=== PATIENT | female | born 1970 | race Caucasian/White ===

== ENCOUNTER 2016-11-09 18:45 | Emergency (ER) | payer OTHER ==
--- NOTE | 2016-11-09 20:35 | DIAGNOSTIC IMAGING REPORT ---
PROCEDURE: CT ABDOMEN/PELVIS W/O CONTRAST INDICATION: Bilateral flank pain. Hematuria. History of kidney stones. Prior cholecystectomy, diverticulosis. TECHNIQUE: Noncontrast axial images with sagittal and coronal reformations. COMPARISON: Comparison is made to CT abdomen and pelvis on 03/27/2015. FINDINGS: ABDOMEN: Kidneys and ureters are normal. No evidence of urinary tract calculus or obstruction. Prior cholecystectomy (surgical clips). Liver, spleen, pancreas, and aorta are normal. There is a 7 mm nonobstructing appendicolith without evidence of inflammation. Bowel pattern is otherwise normal. There are moderate degenerative changes of the lower lumbar spine. PELVIS: Mild sigmoid diverticulosis. Uterus and adnexal structures are normal. There is a punctate air collection in the ventral urinary bladder. No evidence of free fluid. IMPRESSION: 1. Normal kidneys and ureters. No inferior tract obstruction or calculus. 2. Status post cholecystectomy. 3. There is a 7 mm nonobstructing appendicolith without evidence of inflammation (chronic). 4. Mild sigmoid diverticulosis. 5. Small punctate air collection in the ventral urinary bladder. Consider urinary tract infection or recent instrumentation. 6. Findings discussed with Dr. Meryl Carmen. All CT scans at this facility use dose modulation, iterative reconstruction, and/or weight-based dosing when appropriate to reduce radiation dose to as low as reasonably achievable.
--- NOTE | 2016-11-09 21:03 | ED NURSING NOTES ---
Clinical Report - Nurses [facility] [place] [address] 11/09/2016 18:45 Patient: JANET MOSER TRIAGE Triage time 19:05 Nov 09 2016. Acuity: LEVEL 3. Chief Complaint: PAINFUL URINATION and FREQUENCY and (Red/orange urine). SEPSIS SCREEN: Sepsis Screen: negative. Negative (no infection suspected/documented). JUSTYNA COMA SCORE: Justyna Coma Scale: 15- eyes open spontaneously (4); best verbal response- oriented x 4 (5); best motor response- obeys commands (6). --19:10 Meenakshi Huff 19:05 11/09/16. BP: 161/113. HR: 77. RR: 20. O2 saturation: 100% on room air. Temp: 98.1 F (oral). Pain level now: 03/23. --19:10 Meenakshi Huff. Weight: 139.2 kg stated. Height/Length: 68 inches Per Patient. BMI: 46.7. --19:09 Meenakshi Huff. Medications Albuterol Sulfate Inhalation, as needed. AmLODIPine Besylate Oral. Aspirin Oral. Hydrochlorothiazide Oral. Lisinopril Oral. Methoprogesterone, , for bleeding uterus. Paxil Oral 10 mg, daily. --19:08 Meenakshi Huff. Medication/allergy information source: the patient. --19:10 Meenakshi Huff. Allergies Codeine.(hives) Sulfa Antibiotics.(Anaphylaxis) --19:08 Meenakshi Huff. History Arrived by private vehicle. Historian: patient. Accompanied by family. Primary physician (varsha). This started today. ( Patient reports painful urination that started today. She reports cramping, orange urine that is now red. 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 PAST MEDICAL HX: Immunizations: up-to-date. Last normal menstrual period- states on and off bleeding for two years. SOCIAL HX: Never smoker. No alcohol use or drug use. No infectious disease exposure. ABUSE ASSESSMENT: No report of abuse. FALL RISK ASSESSMENT: Fall risk assessment completed. No fall risk identified. NUTRITIONAL RISK ASSESSMENT: The nutritional risk assessment revealed no deficiencies. FUNCTIONAL ASSESSMENT: Functional assessment: no impairments noted. LEARNING NEEDS ASSESSMENT: The learning needs assessment revealed no barriers. SKIN INTEGRITY ASSESSMENT: Skin integrity risk assessment completed. No skin integrity risk identified. --19:10 Meenakshi Huff. PROBLEMS: Chest Wall Pain. Anxiety Reaction. Heart Disease. Asthma. Bronchitis. Enlarged heart valve. Knee Injury. Knee Effusion. LNMP - Last Normal Menstrual Period. Peripheral Nerve Entrapment. Hypertension. --19:09 Meenakshi Huff. ADDITIONAL SURGERIES: Cholecystectomy. Dilatation & Curettage. Knee Surgery. --19:09 Meenakshi Huff. Interventions ID band on patient. To treatment room. --19:10 Meenakshi Huff. PHYSICAL ASSESSMENT GENERAL / NEURO / PSYCH: Alert. Oriented X 4. Appears in no acute distress. HEENT: Mucous membranes are pink. RESPIRATORY: Respirations not labored. GI / : Abdominal tenderness in the suprapubic area. Pain with urination. SKIN: Skin is warm and dry. --19:10 Meenakshi Huff. NURSING PROGRESS NOTES Warming measures: blanket applied. Reassurance given to the patient. Two patient identifiers checked. Call light placed in reach. Side rails up x 1. Bed placed in lowest position. Brakes of bed on. Patient ready for evaluation- chart flagged. --19:11 Meenakshi Huff ( Patient was seen at [facility] earlier today and had CT but was not given results). --19:11 Meenakshi Huff Patient ID band checked for patient name and birthdate: patient confirmed. Instructions provided to collect clean catch urine and patient verbalized understanding. Clean catch urine collected with return of orange-colored red-colored cloudy urine; sample sent to lab for urinalysis and culture. Specimen labeled in the presence of the patient. --19:15 Meenakshi Huff 20:53 11/09/16. BP: 162/101. HR: 69. RR: 18. O2 saturation: 97%. Pain level now: 04/22. --20:54 Meenakshi Huff 20:58 11/09/2016 Pyridium (Phenazopyridine HCl) PO Tablets 200 mg given. Allergies verified and confirmed 5 rights. --20:58 Meenakshi Huff 20:58 11/09/2016 Macrobid PO Capsules 100 mg given. Allergies verified and confirmed 5 rights. --20:58 Meenakshi Huff. DISPOSITION / DISCHARGE 21:15 11/09/16. Condition at departure: stable. No learning barriers present. Discharge instructions provided and reviewed with the patient and spouse. Reviewed medication(s) side effects, precautions, dosing and course information. Prescription(s) given to the patient. Reviewed need for increased fluid intake. Patient and spouse verbalized understanding. Written instructions provided in [place]. ( Follow up with PCP in three days as needed. IF your symptoms do not improve with antibiotics see a Urologist.). The patient was discharged by the physician court assistant. She was discharged home and accompanied by spouse. She left the Emergency Department ambulatory and via private vehicle. Spouse driving. --02:23 Meenakshi Huff 21:15 11/09/16. BP: 158/88. HR: 80. RR: 18. O2 saturation: 99% on room air. Temp: 98.4 F (oral). Pain level now: 02/20. --02:23 Meenakshi Huff. Locked/Released at 11/10/2016 2:24 by Meenakshi Huff,
--- NOTE | 2016-11-09 21:03 | ED CLINICAL REPORT ---
Clinical Report - Physicians/Mid Levels [facility] [address] [place] [address] 11/09/2016 18:45 Patient: JANET MOSER Time Seen: 19:00. Arrived- By private vehicle. Historian- patient. HISTORY OF PRESENT ILLNESS Chief Complaint: DYSURIA. BLOOD IN URINE. This started today and still present. The symptoms are described as moderate. Modifying factors. Not worsened by anything. Not relieved by anything. The patient has had abnormal bleeding. No abdominal pain, pelvic pain, vaginal pain, low back pain or flank pain. No urgency of urination. She has had pain with urination. The patient has had urinary frequency and hematuria. Denies current . Similar symptoms previously: Recent medical care: The patient was seen recently at another facility. REVIEW OF SYSTEMS No nausea, vomiting, diarrhea, black stools or headache. No fever, chills, anorexia, eye discomfort or sore throat. No cough, difficulty breathing, chest pain, skin rash or enlarged lymph nodes. No joint pain. All systems otherwise negative, except as recorded above. PAST HISTORY Problems: Anxiety Reaction. Chronic Back Pain. Arthritis. Heart Disease. Asthma. Enlarged heart valve. Lumbar Radiculopathy. Tetanus Status. Immunizations. LNMP - Last Normal Menstrual Period. Peripheral Nerve Entrapment. Hypertension. Additional Surgeries: Cholecystectomy. Dilatation & Curettage. Knee Surgery. Medications: Albuterol Sulfate Inhalation, as needed. AmLODIPine Besylate Oral. Aspirin Oral. Hydrochlorothiazide Oral. Lisinopril Oral. Methoprogesterone, , for bleeding uterus. Paxil Oral 10 mg, daily. Allergies: Codeine.(hives) Sulfa Antibiotics.(Anaphylaxis). SOCIAL HISTORY Never smoker. No alcohol use or drug use. ADDITIONAL NOTES The nursing notes have been reviewed. PHYSICAL EXAM Vital Signs: 11/09/2016 19:05 BP: 161/113. HR: 77. RR: 20. O2 saturation: 100%. Temp: 98.1 F. Pain level now: 6/10. Have been reviewed. Appearance: Alert. Oriented X3. No acute distress. HEENT: Normal external inspection. Neck: Neck supple. CVS: Heart sounds normal. Respiratory: No respiratory distress. Breath sounds normal. Abdomen: Soft and nontender. Back: Normal external inspection. No CVA tenderness. Skin: Skin warm and dry. Normal skin color. No rash. Normal skin turgor. Extremities: Extremities nontender. No lower extremity edema. Neuro: Oriented X 3. Mood/affect normal. No motor deficit. LABS, X-RAYS, AND EKG Abdominal CT: Normal study. Normal aorta. Normal liver, spleen, pancreas, adrenals and kidneys. Uterus normal. Adnexa normal. Bladder normal. Appendix normal. No mass. No free fluid. No bony lesion. No diverticulitis. Study type: abdomen and pelvis. Abdominal CT performed with IV contrast. The study was independently viewed by me, interpreted by the radiologist and contemporaneously by me and discussed with the radiologist. Prior studies were not available for comparison. Laboratory Tests: UA-Culture if indicated: (KEATON: 11/09/2016 19:10) ( MsgRcvd 11/09/2016 19:55) Final results Test Result Flag Units (Reference) URINE COLOR BROWN URINE APPEARANCE TURBID URINE GLUCOSE NEGATIVE (NEGATIVE) URINE BILIRUBIN NEGATIVE (NEGATIVE) URINE KETONE NEGATIVE (NEGATIVE) URINE SPECIFIC GRAVITY 1.025 (1.010-1.030) URINE PH 6.0 (5.0-8.0) URINE PROTEIN 3+ (NEGATIVE) URINE UROBILINOGEN 0.2 EU/dL (0.2-1.0) URINE NITRITE NEGATIVE (NEGATIVE) URINE BLOOD 3+ (NEGATIVE) URINE LEUK ESTERASE NEGATIVE (NEGATIVE) URINE RBC >100 (TNTC) rbc/hpf (0-1) URINE WBC 3-5 wbc/hpf (0-1) URINE EPITHELIAL CELLS 3-5 EPI/hpf (0-5) URINE BACTERIA FEW (1+) (NONE SEEN) URINE COMMENT CULT NOT INDICATED SPECIMEN GROSSLY BLOODYURINE CULTURES ARE SET-UP BASED ON THE FOLLOWING CRITERIA:POSITIVE NITRITEPOSITIVE LEUKOCYTE ESTERASEGREATER THAN 10 WHITE BLOOD CELLSMODERATE (2+) OR GREATER BACTERIA . Pulse Oximetry: 11/09/2016 19:05 O2 saturation: 100%. (FIO2 - room air). Interpretation: normal. PROGRESS AND PROCEDURES Course of Care: PT was found to have a mildly positive UA, and was started on Macrobid and Pyridium. CT KUB was negative. Patient counseled in person regarding the patient's stable condition, test results, diagnosis and need for follow-up. Concerns were addressed. Old medical records reviewed. Disposition: Discharged. Condition: stable and improved. CLINICAL IMPRESSION Dysuria Gross hematuria INSTRUCTIONS Drink plenty of fluids. (Your urine does not show clear-cut signs of infection, and your organs all look good on CT. However, your symptoms point to infection, and you do have a small elevation in your urine white blood cells. As such, we will treat you with antibiotics. If your symptoms do not clear up, you will need to follow up with a urology specialist.). Warnings: GENERAL WARNINGS: Return or contact your physician immediately if your condition worsens or changes unexpectedly, if not improving as expected, or if other problems arise. Your Current Medications: CONTINUE TAKING THE FOLLOWING MEDICATIONS: Albuterol Sulfate Inhalation : prn. AmLODIPine Besylate Oral. Aspirin Oral. Hydrochlorothiazide Oral. Lisinopril Oral. Methoprogesterone* : for bleeding uterus. Paxil Oral : 10 mg daily. Prescription Medications: Pyridium 200 mg: take 1 orally every 8 hours as needed for urinary problems. Dispense fifteen (15). No refill. Substitution is permissible. Macrobid 100 mg: take 1 capsule orally every 12 hours for 7 days. No refill. Substitution is permissible. Understanding of the discharge instructions verbalized by patient. Follow-up with: Bryan Olivera MD, Urology, , [address] [address]; Celso Moe MD, Urology, , [address] [address] Follow up in one week if not better. Call for an appointment. Reason for referral: Blood in urine. (Electronically signed by Meryl Carmen MD 11/18/2016 7:39)
--- NOTE | 2016-11-09 21:03 | ED CLINICAL REPORT ---
Clinical Report - Physicians/Mid Levels [facility] [address] [place] [address] 11/09/2016 18:45 Patient: JANET MOSER Time Seen: 19:00. Arrived- By private vehicle. Historian- patient. HISTORY OF PRESENT ILLNESS Chief Complaint: DYSURIA. BLOOD IN URINE. This started today and still present. The symptoms are described as moderate. Modifying factors. Not worsened by anything. Not relieved by anything. The patient has had abnormal bleeding. No abdominal pain, pelvic pain, vaginal pain, low back pain or flank pain. No urgency of urination. She has had pain with urination. The patient has had urinary frequency and hematuria. Denies current . Similar symptoms previously: Recent medical care: The patient was seen recently at another facility. REVIEW OF SYSTEMS No nausea, vomiting, diarrhea, black stools or headache. No fever, chills, anorexia, eye discomfort or sore throat. No cough, difficulty breathing, chest pain, skin rash or enlarged lymph nodes. No joint pain. All systems otherwise negative, except as recorded above. PAST HISTORY Problems: Anxiety Reaction. Chronic Back Pain. Arthritis. Heart Disease. Asthma. Enlarged heart valve. Lumbar Radiculopathy. Tetanus Status. Immunizations. LNMP - Last Normal Menstrual Period. Peripheral Nerve Entrapment. Hypertension. Additional Surgeries: Cholecystectomy. Dilatation & Curettage. Knee Surgery. Medications: Albuterol Sulfate Inhalation, as needed. AmLODIPine Besylate Oral. Aspirin Oral. Hydrochlorothiazide Oral. Lisinopril Oral. Methoprogesterone, , for bleeding uterus. Paxil Oral 10 mg, daily. Allergies: Codeine.(hives) Sulfa Antibiotics.(Anaphylaxis). SOCIAL HISTORY Never smoker. No alcohol use or drug use. ADDITIONAL NOTES The nursing notes have been reviewed. PHYSICAL EXAM Vital Signs: 11/09/2016 19:05 BP: 161/113. HR: 77. RR: 20. O2 saturation: 100%. Temp: 98.1 F. Pain level now: 6/10. Have been reviewed. Appearance: Alert. Oriented X3. No acute distress. HEENT: Normal external inspection. Neck: Neck supple. CVS: Heart sounds normal. Respiratory: No respiratory distress. Breath sounds normal. Abdomen: Soft and nontender. Back: Normal external inspection. No CVA tenderness. Skin: Skin warm and dry. Normal skin color. No rash. Normal skin turgor. Extremities: Extremities nontender. No lower extremity edema. Neuro: Oriented X 3. Mood/affect normal. No motor deficit. LABS, X-RAYS, AND EKG Abdominal CT: Normal study. Normal aorta. Normal liver, spleen, pancreas, adrenals and kidneys. Uterus normal. Adnexa normal. Bladder normal. Appendix normal. No mass. No free fluid. No bony lesion. No diverticulitis. Study type: abdomen and pelvis. Abdominal CT performed with IV contrast. The study was independently viewed by me, interpreted by the radiologist and contemporaneously by me and discussed with the radiologist. Prior studies were not available for comparison. Laboratory Tests: UA-Culture if indicated: (KEATON: 11/09/2016 19:10) ( MsgRcvd 11/09/2016 19:55) Final results Test Result Flag Units (Reference) URINE COLOR BROWN URINE APPEARANCE TURBID URINE GLUCOSE NEGATIVE (NEGATIVE) URINE BILIRUBIN NEGATIVE (NEGATIVE) URINE KETONE NEGATIVE (NEGATIVE) URINE SPECIFIC GRAVITY 1.025 (1.010-1.030) URINE PH 6.0 (5.0-8.0) URINE PROTEIN 3+ (NEGATIVE) URINE UROBILINOGEN 0.2 EU/dL (0.2-1.0) URINE NITRITE NEGATIVE (NEGATIVE) URINE BLOOD 3+ (NEGATIVE) URINE LEUK ESTERASE NEGATIVE (NEGATIVE) URINE RBC >100 (TNTC) rbc/hpf (0-1) URINE WBC 3-5 wbc/hpf (0-1) URINE EPITHELIAL CELLS 3-5 EPI/hpf (0-5) URINE BACTERIA FEW (1+) (NONE SEEN) URINE COMMENT CULT NOT INDICATED SPECIMEN GROSSLY BLOODYURINE CULTURES ARE SET-UP BASED ON THE FOLLOWING CRITERIA:POSITIVE NITRITEPOSITIVE LEUKOCYTE ESTERASEGREATER THAN 10 WHITE BLOOD CELLSMODERATE (2+) OR GREATER BACTERIA . Pulse Oximetry: 11/09/2016 19:05 O2 saturation: 100%. (FIO2 - room air). Interpretation: normal. PROGRESS AND PROCEDURES Course of Care: PT was found to have a mildly positive UA, and was started on Macrobid and Pyridium. CT KUB was negative. Patient counseled in person regarding the patient's stable condition, test results, diagnosis and need for follow-up. Concerns were addressed. Old medical records reviewed. Disposition: Discharged. Condition: stable and improved. CLINICAL IMPRESSION Dysuria Gross hematuria INSTRUCTIONS Drink plenty of fluids. (Your urine does not show clear-cut signs of infection, and your organs all look good on CT. However, your symptoms point to infection, and you do have a small elevation in your urine white blood cells. As such, we will treat you with antibiotics. If your symptoms do not clear up, you will need to follow up with a urology specialist.). Warnings: GENERAL WARNINGS: Return or contact your physician immediately if your condition worsens or changes unexpectedly, if not improving as expected, or if other problems arise. Your Current Medications: CONTINUE TAKING THE FOLLOWING MEDICATIONS: Albuterol Sulfate Inhalation : prn. AmLODIPine Besylate Oral. Aspirin Oral. Hydrochlorothiazide Oral. Lisinopril Oral. Methoprogesterone* : for bleeding uterus. Paxil Oral : 10 mg daily. Prescription Medications: Pyridium 200 mg: take 1 orally every 8 hours as needed for urinary problems. Dispense fifteen (15). No refill. Substitution is permissible. Macrobid 100 mg: take 1 capsule orally every 12 hours for 7 days. No refill. Substitution is permissible. Understanding of the discharge instructions verbalized by patient. Follow-up with: Bryan Olivera MD, Urology, , [address] [address]; Celso Moe MD, Urology, , [address] [address] Follow up in one week if not better. Call for an appointment. Reason for referral: Blood in urine. (Electronically signed by Meryl Carmen MD 11/18/2016 7:39)
--- NOTE | 2016-11-09 21:03 | ED NURSING NOTES ---
Clinical Report - Nurses [facility] [address] [place] [address] 11/09/2016 18:45 Patient: JANET MOSER TRIAGE Triage time 19:05 Nov 09 2016. Acuity: LEVEL 3. Chief Complaint: PAINFUL URINATION and FREQUENCY and (Red/orange urine). SEPSIS SCREEN: Sepsis Screen: negative. Negative (no infection suspected/documented). JUSTYNA COMA SCORE: Justyna Coma Scale: 15- eyes open spontaneously (4); best verbal response- oriented x 4 (5); best motor response- obeys commands (6). --19:10 Meenakshi Huff 19:05 11/09/16. BP: 161/113. HR: 77. RR: 20. O2 saturation: 100% on room air. Temp: 98.1 F (oral). Pain level now: 03/23. --19:10 Meenakshi Huff. Weight: 139.2 kg stated. Height/Length: 68 inches Per Patient. BMI: 46.7. --19:09 Meenakshi Huff. Medications Albuterol Sulfate Inhalation, as needed. AmLODIPine Besylate Oral. Aspirin Oral. Hydrochlorothiazide Oral. Lisinopril Oral. Methoprogesterone, , for bleeding uterus. Paxil Oral 10 mg, daily. --19:08 Meenakshi Huff. Medication/allergy information source: the patient. --19:10 Meenakshi Huff. Allergies Codeine.(hives) Sulfa Antibiotics.(Anaphylaxis) --19:08 Meenakshi Huff. History Arrived by private vehicle. Historian: patient. Accompanied by family. Primary physician (varsha). This started today. ( Patient reports painful urination that started today. She reports cramping, orange urine that is now red. 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 PAST MEDICAL HX: Immunizations: up-to-date. Last normal menstrual period- states on and off bleeding for two years. SOCIAL HX: Never smoker. No alcohol use or drug use. No infectious disease exposure. ABUSE ASSESSMENT: No report of abuse. FALL RISK ASSESSMENT: Fall risk assessment completed. No fall risk identified. NUTRITIONAL RISK ASSESSMENT: The nutritional risk assessment revealed no deficiencies. FUNCTIONAL ASSESSMENT: Functional assessment: no impairments noted. LEARNING NEEDS ASSESSMENT: The learning needs assessment revealed no barriers. SKIN INTEGRITY ASSESSMENT: Skin integrity risk assessment completed. No skin integrity risk identified. --19:10 Meenakshi Huff. PROBLEMS: Chest Wall Pain. Anxiety Reaction. Heart Disease. Asthma. Bronchitis. Enlarged heart valve. Knee Injury. Knee Effusion. LNMP - Last Normal Menstrual Period. Peripheral Nerve Entrapment. Hypertension. --19:09 Meenakshi Huff. ADDITIONAL SURGERIES: Cholecystectomy. Dilatation & Curettage. Knee Surgery. --19:09 Meenakshi Huff. Interventions ID band on patient. To treatment room. --19:10 Meenakshi Huff. PHYSICAL ASSESSMENT GENERAL / NEURO / PSYCH: Alert. Oriented X 4. Appears in no acute distress. HEENT: Mucous membranes are pink. RESPIRATORY: Respirations not labored. GI / : Abdominal tenderness in the suprapubic area. Pain with urination. SKIN: Skin is warm and dry. --19:10 Meenakshi Huff. NURSING PROGRESS NOTES Warming measures: blanket applied. Reassurance given to the patient. Two patient identifiers checked. Call light placed in reach. Side rails up x 1. Bed placed in lowest position. Brakes of bed on. Patient ready for evaluation- chart flagged. --19:11 Meenakshi Huff ( Patient was seen at [facility] earlier today and had CT but was not given results). --19:11 Meenakshi Huff Patient ID band checked for patient name and birthdate: patient confirmed. Instructions provided to collect clean catch urine and patient verbalized understanding. Clean catch urine collected with return of orange-colored red-colored cloudy urine; sample sent to lab for urinalysis and culture. Specimen labeled in the presence of the patient. --19:15 Meenakshi Huff 20:53 11/09/16. BP: 162/101. HR: 69. RR: 18. O2 saturation: 97%. Pain level now: 04/22. --20:54 Meenakshi Huff 20:58 11/09/2016 Pyridium (Phenazopyridine HCl) PO Tablets 200 mg given. Allergies verified and confirmed 5 rights. --20:58 Meenakshi Huff 20:58 11/09/2016 Macrobid PO Capsules 100 mg given. Allergies verified and confirmed 5 rights. --20:58 Meenakshi Huff. DISPOSITION / DISCHARGE 21:15 11/09/16. Condition at departure: stable. No learning barriers present. Discharge instructions provided and reviewed with the patient and spouse. Reviewed medication(s) side effects, precautions, dosing and course information. Prescription(s) given to the patient. Reviewed need for increased fluid intake. Patient and spouse verbalized understanding. Written instructions provided in [place]. ( Follow up with PCP in three days as needed. IF your symptoms do not improve with antibiotics see a Urologist.). The patient was discharged by the physician retail administrative assistant. She was discharged home and accompanied by spouse. She left the Emergency Department ambulatory and via private vehicle. Spouse driving. --02:23 Meenakshi Huff 21:15 11/09/16. BP: 158/88. HR: 80. RR: 18. O2 saturation: 99% on room air. Temp: 98.4 F (oral). Pain level now: 02/20. --02:23 Meenakshi Huff. Locked/Released at 11/10/2016 2:24 by Meenakshi Huff,
--- NOTE | 2016-11-09 21:04 | ED ORDER SUMMARY ---
..... Patient: JANET MOSER OrderSheet [facility] VisitID: [id number] [address] [place] [address] 46y, F Registration Date/Time: 11/09/2016 ORDER SHEET Weight: 139.2 kg (stated) Allergies: Codeine, Sulfa Antibiotics GENERAL ORDERS: UA-Culture if indicated Urgent (19:28 11/09/2016 Rafy CHAUDHARY) (19:33 AMcQuoid ER Tech1) (Ack 19:34 LTapper) CT Abd/Pel wo Cont Urgent (20:02 11/09/2016 Rafy CHAUDHARY) (Ack 20:04 LTapper) (20:20 MCampbell) MEDICATION ORDERS: Pyridium PO 200 mg (NOW) (20:52 11/09/2016 Rafy CHAUDHARY) (Ack 20:53 HSoule) (20:58 HSoule) Macrobid PO 100 mg (NOW) (20:53 11/09/2016 Rafy CHAUDHARY) (Ack 20:53 HSoule) (20:58 HSoule) IV FLUIDS: ORDER SHEET NOTES: [Electronically signed by Meenakshi Huff (02:24 11/10/2016)] [Electronically signed by Meryl Carmen MD (07:39 11/18/2016)] [Electronically locked/signed by Meenakshi Huff (02:24 11/10/2016)]
--- NOTE | 2016-11-09 21:04 | ED ORDER SUMMARY ---
..... Patient: JANET MOSER OrderSheet [facility] VisitID: [id number] [address] [place] [address] 46y, F Registration Date/Time: 11/09/2016 ORDER SHEET Weight: 139.2 kg (stated) Allergies: Codeine, Sulfa Antibiotics GENERAL ORDERS: UA-Culture if indicated Urgent (19:28 11/09/2016 Rafy CHAUDHARY) (19:33 AMcQuoid ER Tech1) (Ack 19:34 LTapper) CT Abd/Pel wo Cont Urgent (20:02 11/09/2016 Rafy CHAUDHARY) (Ack 20:04 LTapper) (20:20 MCampbell) MEDICATION ORDERS: Pyridium PO 200 mg (NOW) (20:52 11/09/2016 Rafy CHAUDHARY) (Ack 20:53 HSoule) (20:58 HSoule) Macrobid PO 100 mg (NOW) (20:53 11/09/2016 Rafy CHAUDHARY) (Ack 20:53 HSoule) (20:58 HSoule) IV FLUIDS: ORDER SHEET NOTES: [Electronically signed by Meenakshi Huff (02:24 11/10/2016)] [Electronically signed by Meryl Carmen MD (07:39 11/18/2016)] [Electronically locked/signed by Meenakshi Huff (02:24 11/10/2016)]
--- NOTE | 2016-11-18 07:39 | ED MED RECONCILIATION SUMMARY ---
Patient: JANET MOSER Medication Reconciliation Report [facility] VisitID: [id number] [address] [place] [address] 46y, F Registration Date/Time: 11/09/2016 Weight: 139.2 kg Height/Length: 68 in. BMI: 46.7 ALLERGIES: Codeine, Sulfa Antibiotics The patient's Home Medications are listed below: CONTINUE TAKING THE FOLLOWING MEDICATIONS: Albuterol Sulfate Inhalation AmLODIPine Besylate Oral Aspirin Oral Hydrochlorothiazide Oral Lisinopril Oral Methoprogesterone, for bleeding uterus Paxil Oral 10 mg, daily The source(s) of the original Home Medication information: patient The following Medications were given to the patient in the Emergency Department: Pyridium [PO] PO 200 mg, administered: 11/09/2016 8:58:00 PM Macrobid [PO] PO 100 mg, administered: 11/09/2016 8:58:00 PM The following Medications were prescribed to the patient: Pyridium 200 mg: take 1 orally every 8 hours as needed for urinary problems. Dispense fifteen (15). No refill. Substitution is permissible. -- Meryl Carmen MD Macrobid 100 mg: take 1 capsule orally every 12 hours for 7 days. No refill. Substitution is permissible. -- Meryl Carmen MD
--- NOTE | 2016-11-18 07:39 | ED MAR SUMMARY ---
..... Medication Administration Record [facility] [address] [place] [address] Patient: JANET MOSER Visit ID: [id number] 46y, F Weight: 139.2 kg Height/Length: 68 in BMI: 46.7 ALLERGIES: Codeine, Sulfa Antibiotics Given 20:11/09/2016 Meenakshi Huff, Medication Administered: PYRIDIUM [PO] (PHENAZOPYRIDINE HCL), Dose: 200 mg Tablets PO. Medication Ordered: Pyridium PO 200 mg (NOW). Given 20:11/09/2016 Meenakshi Huff, Medication Administered: MACROBID [PO], Dose: 100 mg Capsules PO. Medication Ordered: Macrobid PO 100 mg (NOW).
--- NOTE | 2016-11-18 07:39 | ED MAR SUMMARY ---
..... Medication Administration Record [facility] [address] [address] Patient: JANET MOSER Visit ID: [id number] 46y, F Weight: 139.2 kg Height/Length: 68 in BMI: 46.7 ALLERGIES: Codeine, Sulfa Antibiotics Given 20:11/09/2016 Meenakshi Huff, Medication Administered: PYRIDIUM [PO] (PHENAZOPYRIDINE HCL), Dose: 200 mg Tablets PO. Medication Ordered: Pyridium PO 200 mg (NOW). Given 20:11/09/2016 Meenakshi Huff, Medication Administered: MACROBID [PO], Dose: 100 mg Capsules PO. Medication Ordered: Macrobid PO 100 mg (NOW).
--- NOTE | 2016-11-18 07:39 | ED DISCHARGE INSTRUCTIONS ---
Patient: JANET MOSER General Instructions [facility] VisitID: [id number] [place] [address] 46y, F Registration Date/Time: 11/09/2016 Dysuria Gross hematuria INSTRUCTIONS Drink plenty of fluids. (Your urine does not show clear-cut signs of infection, and your organs all look good on CT. However, your symptoms point to infection, and you do have a small elevation in your urine white blood cells. As such, we will treat you with antibiotics. If your symptoms do not clear up, you will need to follow up with a urology specialist.). Warnings: GENERAL WARNINGS: Return or contact your physician immediately if your condition worsens or changes unexpectedly, if not improving as expected, or if other problems arise. Your Current Medications: CONTINUE TAKING THE FOLLOWING MEDICATIONS: Albuterol Sulfate Inhalation : prn. AmLODIPine Besylate Oral. Aspirin Oral. Hydrochlorothiazide Oral. Lisinopril Oral. Methoprogesterone* : for bleeding uterus. Paxil Oral : 10 mg daily. Prescription Medications: Pyridium 200 mg: take 1 orally every 8 hours as needed for urinary problems. Dispense fifteen (15). No refill. Substitution is permissible. Macrobid 100 mg: take 1 capsule orally every 12 hours for 7 days. No refill. Substitution is permissible. Understanding of the discharge instructions verbalized by patient. Follow-up with: Bryan Olivera MD, Urology, , [address] [address]; Celso Moe MD, Urology, , [address] [address] Follow up in one week if not better. Call for an appointment. Reason for referral: Blood in urine. ADDITIONAL INFORMATION Dysuria [Adult, Uncertain Cause] The urethra is the channel that allows urine to pass out of the body. In a woman, the urethra is the opening above the vagina. In men, the urethra is the opening on the tip of the penis. Dysuria is the feeling of pain or burning in the urethra when passing urine. Dysuria can be caused by anything that irritates or inflames the urethra. This can be caused by an infection or chemical irritation. The cause for your dysuria is not certain. The most common cause of dysuria in adults is a bladder infection. This is diagnosed with a urine test. It requires treatment with an antibiotic. Soaps, lotions, colognes, feminine hygiene products, contraceptive jellies, creams and foams can cause chemical irritation and dysuria. It will go away in 1-3 days after last exposure. Sexually Transmitted Disease (STD) from Chlamydia or Gonorrhea can cause dysuria. If your doctor suspects this, a culture specimen may be taken. It will take about three days to get the results. Antibiotic treatment may be started before the culture test returns. In post-menopausal women, dysuria can be a result of dryness in the lining of the urethra. This can be treated with hormones. Dysuria becomes "chronic" when it lasts for weeks or months. A referral to a specialist (urologist) may be needed to diagnose and treat chronic dysuria. Home Care: Avoid any chemical agents that you suspect may be causing your symptoms. If you were given a prescription medicine, take as directed. If a culture was taken, avoid sexual activity until you have been told that it is negative (no infection). Then, follow your doctor's advice to treat your condition. If a culture was done and it is positive: Both you and your sexual partner need to be treated, even if your partner has no symptoms. Contact your doctor or go to an urgent care clinic or the Public Health Department to be examined and treated. Avoid sexual activity until both you and your partner have completed all antibiotic medicine and told that you are no longer contagious. Learn about safe sex practices and use these in the future. The safest sex is with a partner who has tested negative and only has sex with you. Condoms offer protection from spreading some sexually transmitted diseases including Gonorrhea, Chlamydia and HIV, but are not a guarantee. Follow Up with your doctor as advised by our staff. If a culture was taken call in three days for the result, or as directed. If diagnosed with an STD, follow up with your doctor or the Public Health Department for complete STD screening, including HIV testing. For more information, contact the National STD Hotline: . Get Prompt Medical Attention if any of the following occur: No improvement after three days of treatment Fever of 100.4F (38C) or higher, or as directed by your healthcare provider Increasing back or abdominal pain Inability to urinate due to pain A new discharge from the urethra, vagina or penis Painful sores on the penis Rash or joint pain Enlarged painful lymph nodes (lumps) in the groin Testicle pain or swelling of the scrotum Blood In The Urine Blood in the urine ("hematuria") has many possible causes. If it occurs after an injury (such as a car accident or fall), it is most often a sign of bruising to the kidney or bladder. Common medical causes of blood in the urine include urinary tract infection, kidney stone, inflammation, tumors, or certain other diseases of the kidney or bladder. Menstruation can cause blood to appear in the urine sample, although it is not coming from the urinary tract. If only a trace amount of blood is present, it will show up on the urine test, even though the urine may be yellow and not pink or red. This may occur with any of the above conditions, as well as heavy exercise or high fever. In this case, your doctor may want to repeat the urine test on another day. This will show if the blood is still present. If so, then other tests can be done to find out the cause. Home Care: If your urine does not appear bloody (pink, brown or red) then you do not need to restrict your activity in any way. If you can see blood in your urine, rest and avoid heavy exertion until your next exam. Do not use aspirin or anti-inflammatory medicine like ibuprofen (Motrin, Advil) or naproxen (Naprosyn, Aleve). These thin the blood and may increase bleeding. Follow Up with your doctor or as advised by our staff. If you were injured and had blood in your urine, you should have a repeat urine test in 1-2 days. Contact your doctor or return to this facility for this test. [NOTE: A radiologist will review any X-rays that were taken. We will notify you of any new findings that may affect your care.] Get Prompt Medical Attention if any of the following occur: Bright red blood or blood clots in the urine (if a new symptom) Weakness, dizziness or fainting New groin, abdominal or back pain Fever of 100.4F (38C) or higher, or as directed by your healthcare provider Repeated vomiting Bleeding from nose, gums or easy bruising You have been given the following additional information: Dysuria, Uncertain Cause (Adult) Hematuria (Electronically signed by Meryl Carmen MD 11/18/2016 7:39)
--- NOTE | 2016-11-18 07:39 | ED MED RECONCILIATION SUMMARY ---
Patient: JANET MOSER Medication Reconciliation Report [facility] VisitID: [id number] [address] [place] [address] 46y, F Registration Date/Time: 11/09/2016 Weight: 139.2 kg Height/Length: 68 in. BMI: 46.7 ALLERGIES: Codeine, Sulfa Antibiotics The patient's Home Medications are listed below: CONTINUE TAKING THE FOLLOWING MEDICATIONS: Albuterol Sulfate Inhalation AmLODIPine Besylate Oral Aspirin Oral Hydrochlorothiazide Oral Lisinopril Oral Methoprogesterone, for bleeding uterus Paxil Oral 10 mg, daily The source(s) of the original Home Medication information: patient The following Medications were given to the patient in the Emergency Department: Pyridium [PO] PO 200 mg, administered: 11/09/2016 8:58:00 PM Macrobid [PO] PO 100 mg, administered: 11/09/2016 8:58:00 PM The following Medications were prescribed to the patient: Pyridium 200 mg: take 1 orally every 8 hours as needed for urinary problems. Dispense fifteen (15). No refill. Substitution is permissible. -- Meryl Carmen MD Macrobid 100 mg: take 1 capsule orally every 12 hours for 7 days. No refill. Substitution is permissible. -- Meryl Carmen MD
== END 2016-11-09 21:15 | disposition home or self-care (01) ==
LOC: ED SRH 18:45
DX: R31.0 Gross hematuria (principal); R30.0 Dysuria; I10 Essential (primary) hypertension; I51.9 Heart disease, unspecified; Z79.82 Long term (current) use of aspirin; Z79.899 Other long term (current) drug therapy; Z88.5 Allergy status to narcotic agent; Z88.2 Allergy status to sulfonamides
CPT/HCPCS: 90004

== ENCOUNTER 2016-12-31 07:33 | Emergency (ER) | payer OTHER ==
--- NOTE | 2016-12-31 10:44 | DIAGNOSTIC IMAGING REPORT ---
PROCEDURE: US VENOUS - RIGHT EXT INDICATION: PAIN TECHNIQUE: Duplex sonography of the deep venous system in the right lower extremity was performed. Compression and augmentation techniques were used. COMPARISON: None. FINDINGS: Each interrogated segment of deep vein from the common femoral vein into the calf veins demonstrates normal compressibility, augmentation and/or color Doppler flow without filling defect. No evidence of significant soft-tissue edema, soft-tissue mass or cyst. IMPRESSION: 1. No deep venous thrombosis in the right lower extremity.
--- NOTE | 2016-12-31 10:46 | DIAGNOSTIC IMAGING REPORT ---
PROCEDURE: US ART LOWER EXT DOPPLER-RIGHT INDICATION: PAIN IN LIMB TECHNIQUE: Color Doppler duplex imaging of the right lower extremity arterial system was performed. COMPARISON: None. FINDINGS: VESSELS/ WAVEFORMS: Triphasic arterial flow throughout the right lower extremity arteries. No significant atherosclerotic plaque/calcification or focal arterial stenosis. PEAK SYSTOLIC VELOCITIES: External iliac: 121 cm/second. Common femoral artery: 132 cm/second. Profunda femoral artery: 70 cm/second. Proximal superficial femoral artery: 84 cm/second. Mid superficial femoral artery: 85 cm/second. Distal superficial femoral artery: 64 cm/second. Popliteal artery: 58 cm/second. Proximal posterior tibial artery: 55 cm/second. Proximal anterior tibial artery: 57 cm/second. Peroneal artery: Not seen cm/second. Distal posterior tibial artery: 82 cm/second. Dorsalis pedis artery: 51 cm/second. IMPRESSION: 1. Normal arterial flow throughout the right lower extremity.
--- NOTE | 2016-12-31 10:59 | ED CLINICAL REPORT ---
Clinical Report - Physicians/Mid Levels [facility] [address] [place] [address] 12/31/2016 7:32 Patient: JANET MOSER *This is a preliminary document and is subject to change Time Seen: 07:45; initial patient contact. Arrived- By private vehicle. Historian- patient. HISTORY OF PRESENT ILLNESS Chief Complaint: Injury to right leg. The injury happened last night. Injury secondary to other mechansim (No injury, unk cause of pain). Occurred at home. Patient is experiencing severe pain. Patient denies injury to the head or neck. REVIEW OF SYSTEMS The patient complains of pain on weight bearing. She has had tingling, and weakness. No swelling, numbness, chest pain, difficulty breathing or pedal edema. She has had calf pain. All systems otherwise negative, except as recorded above. PAST HISTORY ( Hematuria. Dysuria. Chest Wall Pain. Anxiety Reaction. Chronic Back Pain. Arthritis. Heart Disease. Asthma. Bronchitis. Gastritis. Enlarged heart valve. Lumbar Radiculopathy. Knee Injury. Knee Effusion. Fall. Tetanus Status. Immunizations. LNMP - Last Normal Menstrual Period. Sprain. Peripheral Nerve Entrapment. Hypertension. SURGERIES: Cholecystectomy. Dilatation & Curettage. Knee Surgery). SOCIAL HISTORY Never smoker. No alcohol use or drug use. ADDITIONAL NOTES The nursing notes have been reviewed with agreement regarding the chief complaint, PMH and patient medications and allergies. PHYSICAL EXAM Appearance: Alert. Oriented X3. Appears to be in pain. Head: Head atraumatic. Eyes: Eyes normal inspection. ENT: Pharynx normal. CVS: Normal heart rate and rhythm. Heart sounds normal. Respiratory: No respiratory distress. Breath sounds normal. Skin: Skin intact. Normal skin color. Extremities: Severe soft-tissue tenderness present in the right lateral hip, right lateral, medial and anterior upper leg and right lateral, medial and anterior lower leg. Extremities otherwise negative. Gait: Gait not tested due to pain. Neuro, Vascular and Tendons: Vascular status intact. Decreased light touch sensation over the right thigh and right lower leg. Motor intact. No weakness. Neuro: Oriented X 3. No motor deficit. LABS, X-RAYS, AND EKG Laboratory Tests: UA-Culture if indicated: (KEATON: 12/31/2016 08:45) ( MsgRcvd 12/31/2016 08:58) Final results Test Result Flag Units (Reference) URINE COLOR YELLOW URINE APPEARANCE CLOUDY URINE GLUCOSE NEGATIVE (NEGATIVE) URINE BILIRUBIN NEGATIVE (NEGATIVE) URINE KETONE NEGATIVE (NEGATIVE) URINE SPECIFIC GRAVITY 1.025 (1.010-1.030) URINE PH 6.0 (5.0-8.0) URINE PROTEIN 1+ (NEGATIVE) URINE UROBILINOGEN 1.0 EU/dL (0.2-1.0) URINE NITRITE NEGATIVE (NEGATIVE) URINE BLOOD 1+ (NEGATIVE) URINE LEUK ESTERASE NEGATIVE (NEGATIVE) URINE RBC 1-3 rbc/hpf (0-1) URINE WBC 1-3 wbc/hpf (0-1) URINE EPITHELIAL CELLS 10-15 EPI/hpf (0-5) URINE BACTERIA TRACE (<1+) (NONE SEEN) URINE COMMENT CULT NOT INDICATED 1mL SPECIMENURINE CULTURES ARE SET-UP BASED ON THE FOLLOWING CRITERIA:POSITIVE NITRITEPOSITIVE LEUKOCYTE ESTERASEGREATER THAN 10 WHITE BLOOD CELLSMODERATE (2+) OR GREATER BACTERIA CBC w Diff: (KEATON: 12/31/2016 08:30) ( [facility] Final results Test Result Flag Units (Reference) SED RATE WESTERGREN 17 mm/hr (0-20) WHITE BLOOD COUNT 6.6 K/uL (4.5-11.5) RED BLOOD COUNT 4.81 M/uL (4.00-5.20) HEMOGLOBIN 13.2 gm/dL (12.0-16.0) HEMATOCRIT 39.9 % (36.0-46.0) MEAN CELL VOLUME 83 fL (80-100) MEAN CORPUSCULAR HGB 27 pg (26-34) MEAN CORPUSCULAR HGB CONC 33 g/dL (31-37) RED CELL DISTRIBUTION WIDTH 15.8 H % (11.6-14.8) PLATELET COUNT 291 K/uL (150-400) NEUTROPHIL % 74.2 % (50-75) LYMPH % 17.7 L % (25-40) MONO % 5.9 % (3-14) EOSINOPHIL % 1.8 % (0-4) BASOPHIL % 0.4 % (0-2) [id number]: (KEATON: 12/31/2016 08:30) ( MsgRcvd 12/31/2016 08:59) Final results Test Result Flag Units (Reference) D-DIMER QUANTITATIVE 0.53 H ug/mLFEU (0.27-0.52) The primary value of this quantitative assay relates toits negative predictive value (i.e. exclusion) of pulmonaryembolism/deep vein thrombosis/DIC.Elevated levels of d-dimer may also occur with:, age, cancer, inflammation, liver disease,post-op, infection, hematoma, coronary disease, peripheralarteriopathy, bleeding disorders and thrombolytic treatment.Results should be correlated with other clinical andradiological data.Testing Methodology: Latex Immunoassay CMP: (KEATON: 12/31/2016 08:30) ( MsgRcvd 12/31/2016 09:10) Final results Test Result Flag Units (Reference) GLUCOSE 95 mg/dL (70-110) BUN 16 mg/dL (7-18) CREATININE 0.8 mg/dL (0.6-1.3) Estimated GFR >60 mL/min Estimated GFR- >60 mL/min Note: Persistent reduction over 3 months in eGFR<60 mL/min/1.73 m2 defines CKD. Patients with eGFR values>=60 mL/min/1.73 m2 may also have CKD if evidence ofpersistent proteinuria. Additional information may be foundat www.kidney.org. SODIUM 141 mmol/L (136-145) POTASSIUM 3.7 mmol/L (3.5-5.1) CHLORIDE 105 mmol/L (98-107) CARBON DIOXIDE 27 mmol/L (21-32) CALCIUM 8.9 mg/dL (8.5-10.1) TOTAL PROTEIN 7.0 g/dL (6.4-8.2) ALBUMIN 3.4 g/dL (3.3-5.0) BILIRUBIN, TOTAL 0.3 mg/dL (0.0-1.0) ALKALINE PHOSPHATASE 83 U/L (46-116) AST (SGOT) 20 U/L (15-37) ALT (SGPT) 28 U/L (12-78) C-REACTIVE PROTEIN 0.7 mg/dL (0.0-0.9) . PROGRESS AND PROCEDURES Course of Care: 09:07 12/31/16. Case signed out to Dr. Hare. Labs are pending. CLINICAL IMPRESSION Acute pain in the right lower extremity .12 lead EKG performed. INSTRUCTIONS Warnings: GENERAL WARNINGS: Return or contact your physician immediately if your condition worsens or changes unexpectedly, if not improving as expected, or if other problems arise. Specifically return if pain, vomiting, bleeding, breathing difficulty or fever. Your Current Medications: CONTINUE TAKING THE FOLLOWING MEDICATIONS: Albuterol Sulfate Inhalation : prn. AmLODIPine Besylate Oral. Aspirin Oral. Hydrochlorothiazide Oral. Lisinopril Oral. Methoprogesterone* : for bleeding uterus. Paxil Oral : 10 mg daily. Follow-up: Return to the emergency department as needed. Follow up with your doctor in three days. Reason for referral: recheck today's concerns. Summary of care provided to patient via paper. Screening today revealed the patient's blood pressure to be in the normal range. The patient should follow up with a primary care provider for blood pressure management. Understanding of the discharge instructions verbalized by patient. Ranjith Hare Dr.
--- NOTE | 2016-12-31 10:59 | ED ORDER SUMMARY ---
..... Patient: JANET MOSER OrderSheet [facility] VisitID: [id number] [place] [address] 46y, F Registration Date/Time: 12/31/2016 ORDER SHEET Weight: 144.2 kg (stated) Allergies: Codeine, Sulfa Antibiotics GENERAL ORDERS: CBC w Diff Urgent (08:02 12/31/2016 Mack Bustillo) (Ack 8:04 LNations ER Tech1) (8:48 JBoardley R.N.) CMP Urgent (08:02 12/31/2016 Mack Bustillo) (Ack 8:04 LNations ER Tech1) (8:48 JBoardley R.N.) UA-Culture if indicated Urgent (08:02 12/31/2016 Mack Bustillo) (Ack 8:04 LNations ER Tech1) (8:48 JBoardley R.N.) D-Dimer Urgent (08:02 12/31/2016 Mack Bustillo) (Ack 8:04 LNations ER Tech1) (8:48 JBoardley R.N.) CRP Urgent (08:02 12/31/2016 Mack Bustillo) (Ack 8:04 LNations ER Tech1) (8:48 JBoardley R.N.) Sed Rate Urgent (08:02 12/31/2016 Mack Bustillo) (Ack 8:04 LNations ER Tech1) (8:48 JBoardley R.N.) US Venous Right Urgent (09:55 12/31/2016 Mikhail Bustillo) (Ack 9:56 LNations ER Tech1) (10:42 LWhalen R.N.) US Art Low Ext Doppler Right Urgent (09:55 12/31/2016 Mikhail Bustillo) (Ack 9:56 LNations ER Tech1) (10:42 LWhalen R.N.) MEDICATION ORDERS: Phenergan IV 25 mg (HIGH ALERT MEDICATION, NOW) (10:27 12/31/2016 Mikhail Bustillo) (10:42 LWhalen R.N.) IV FLUIDS: Toradol IV 30 mg (NOW) (08:01 12/31/2016 Mack Bustillo) (Ack 8:49 Candace R.N.) (10:11 LWhalreyna R.N.) IV Saline Lock (08:02 12/31/2016 Mack Bustillo) (8:49 Candace R.N.) Dilaudid IV 2 mg (HIGH ALERT MEDICATION, NOW) (10:27 12/31/2016 Mikhail Bustillo) (10:42 LWhalen R.N.) ORDER SHEET NOTES: This document has not been locked and should not be saved in the medical record.
--- NOTE | 2016-12-31 10:59 | ED NURSING NOTES ---
Clinical Report - Nurses [facility] [address] [place] [address] 12/31/2016 7:32 Patient: JANET MOSER TRIAGE Triage time 07:43 Dec 31 2016. Acuity: LEVEL 3. Chief Complaint: (Right sided pain started in her ankle and shot up to legs and now whole right side is numbness and tingling going into arms and hands.). --07:48 Kaylee Houston R.N. 07:43 12/31/16. BP: 153/99. HR: 65. RR: 20. O2 saturation: 100%. Temp: 98.4 F. Pain level now 07/23. --07:48 Kaylee Houston R.N. RUBINA COMA SCORE: [place] Coma Scale: 15- eyes open spontaneously (4); best verbal response- oriented x 4 (5); best motor response- obeys commands (6). --10:05 Kaylee Houston R.N. Weight: 144.2 kg stated. Height/Length: 67 inches Per Patient. BMI: 49.8. --07:47 Kaylee Houston R.N. Medications Albuterol Sulfate Inhalation, as needed. AmLODIPine Besylate Oral. Aspirin Oral. Hydrochlorothiazide Oral. Lisinopril Oral. Methoprogesterone, , for bleeding uterus. Paxil Oral 10 mg, daily. --07:45 Kaylee Houston R.N. Allergies Codeine.(hives) Sulfa Antibiotics.(Anaphylaxis) --07:45 Kaylee Houston R.N. History Arrived by private vehicle. Historian: patient. Accompanied by family. Onset was abrupt. ( Woke up out of a sleep in severe pain.). She has had new onset of pain-related weakness. Reports severe muscle aches. No fever, cough, difficulty breathing or skin rash. PAST MEDICAL HX: Immunizations: up-to-date. Last normal menstrual period- 2 years ago. SOCIAL HX: Never smoker. No alcohol use or drug use. SELF HARM ASSESSMENT: A self harm assessment was performed. The patient answered "no" to the question "Have you recently felt down, depressed, or hopeless?" and "Do you have thoughts of harming or killing yourself?". FALL RISK ASSESSMENT: Fall risk assessment completed. No fall risk identified. NUTRITIONAL RISK ASSESSMENT: The nutritional risk assessment revealed no deficiencies. FUNCTIONAL ASSESSMENT: Functional assessment: no impairments noted. LEARNING NEEDS ASSESSMENT: The learning needs assessment revealed no barriers. ABUSE ASSESSMENT: Abuse assessment: (yes) The patient was asked "Do you feel safe in your home?". SKIN INTEGRITY ASSESSMENT: Skin integrity risk assessment completed. No skin integrity risk identified. --07:48 Kaylee Houston R.N. PROBLEMS: Hematuria. Dysuria. Chest Wall Pain. Anxiety Reaction. Chronic Back Pain. Arthritis. Heart Disease. Asthma. Bronchitis. Gastritis. Enlarged heart valve. Lumbar Radiculopathy. Knee Injury. Knee Effusion. Fall. Tetanus Status. Immunizations. LNMP - Last Normal Menstrual Period. Sprain. Peripheral Nerve Entrapment. Hypertension. --07:46 Kaylee Houston R.N. ADDITIONAL SURGERIES: Cholecystectomy. Dilatation & Curettage. Knee Surgery. --07:46 Kaylee Houston R.N. Interventions ID and allergy band on patient. --07:48 Kaylee Houston R.N. PHYSICAL ASSESSMENT To room via wheelchair. GENERAL / NEURO / PSYCH: Alert. Oriented X 4. Appears anxious and in distress. She has had numbness. HEENT: Pupils equal, round and reactive to light. No facial asymmetry noted. Mucous membranes are pink. RESPIRATORY: Respirations not labored. Chest nontender. Breath sounds within normal limits. CVS: Normal sinus rhythm noted. Capillary refill less than 2 seconds. Pulses within normal limits. GI / : Abdomen soft and nontender and normal bowel sounds. EXTREMITIES: Skin intact on the extremities. Constant right-sided calf tenderness. Capillary refill is less than 2 seconds in the extremities. Extremity pulses are within normal limits. Extremities exhibit normal ROM. Pain with weight bearing. The patient was unable to bear weight. (per pt). Gait not tested due to pain. No extremity rash. No upper extremity edema. No lower extremity edema. SKIN: Skin intact. Skin is warm and dry. Normal skin turgor. BACK: Normal inspection of the back. --10:06 Kaylee Houston R.N. NURSING PROGRESS NOTES <<STRICKEN ENTRY-- 08:34 12/31/2016 Site #1 started via IV in the left with an 24g angiocath, with good blood return; two attempts. Blood drawn: rainbow set. Labeled in the presence of the patient and sent to the lab. --08:49 Vinod Acevedo R.N. --END STRIKE>> Correction. --10:26 Vinod Acevedo R.N. Pulse oximeter and NIBP monitor placed on patient. Patient gowned. Head of bed elevated 15 degrees. Reassurance given. Call light placed in reach. Side rails up x 2. Bed placed in lowest position. Brakes of bed on. --10:07 Kaylee Houston R.N. 08:45 12/31/16. BP: 150/76. HR: 68. RR: 18. O2 saturation: 99%. --10:08 Kaylee Houston R.N. 08:30 12/31/2016 Toradol IVP 30 mg given over 2 minute(s) via site #1. Allergies verified and confirmed 5 rights. IV patency established. IV site checked: no pain, redness, or swelling. IV flushed thoroughly pre- and post-medication administration. --10:11 Kaylee Houston R.N. 08:34 12/31/2016 Site #1 started via IV in the left forearm with an 24g angiocath, with good blood return; two attempts. Blood drawn: rainbow set. Labeled in the presence of the patient and sent to the lab. --10:26 Vinod Acevedo R.N. 10:42 12/31/2016 Started 25 mg of PHENERGAN (Promethazine HCl) IVPB in bag #1 50 mL; at 200 mL/hr over 1 hour(s) via site #1 via dial-a-flow. Allergies verified and confirmed 5 rights. IV patency established. IV site checked: no pain, redness, or swelling. IV flushed thoroughly pre- and post-medication administration. --10:42 Kaylee Houston R.N. 10:42 12/31/2016 Dilaudid (HYDROmorphone HCl PF) IVP 2 mg given over 2 minute(s) via site #1. Allergies verified, confirmed 5 rights and sedative warning given to the patient and patient's media consultant. IV patency established. IV site checked: no pain, redness, or swelling. IV flushed thoroughly pre- and post-medication administration. --10:42 Kaylee Houston R.N. DISPOSITION / DISCHARGE Condition at departure: improved. No learning barriers present. Discharge instructions provided and reviewed with the patient and parent. Reviewed warnings. Reviewed medication(s). Treatments reviewed. Reviewed referrals. Work note given. Patient and family verbalized understanding. Written instructions provided in Latvian. The patient was discharged home and accompanied by spouse. She left the Emergency Department in a wheelchair and via private vehicle. Spouse driving. --11:08 Kaylee Houston R.N. 11:07 12/31/16. BP: 134/78. HR: 82. RR: 18. O2 saturation: 96%. Temp: 98.6 F. Pain level now 0/10. --11:08 Kaylee Houston R.N. Departure time: 11:Dec 31 2016. --11:08 Kaylee Houston R.N. Locked/Released at 12/31/2016 19:27 by Kaylee Houston R.N.
--- NOTE | 2016-12-31 10:59 | ED ORDER SUMMARY ---
..... Patient: JANET MOSER OrderSheet [facility] VisitID: [id number] [place] [address] 46y, F Registration Date/Time: 12/31/2016 ORDER SHEET Weight: 144.2 kg (stated) Allergies: Codeine, Sulfa Antibiotics GENERAL ORDERS: CBC w Diff Urgent (08:02 12/31/2016 Mack Bustillo) (Ack 8:04 LNations ER Tech1) (8:48 JBoardley R.N.) CMP Urgent (08:02 12/31/2016 Mack Bustillo) (Ack 8:04 LNations ER Tech1) (8:48 JBoardley R.N.) UA-Culture if indicated Urgent (08:02 12/31/2016 Mack Bustillo) (Ack 8:04 LNations ER Tech1) (8:48 JBoardley R.N.) D-Dimer Urgent (08:02 12/31/2016 Mack Bustillo) (Ack 8:04 LNations ER Tech1) (8:48 JBoardley R.N.) CRP Urgent (08:02 12/31/2016 Mack Bustillo) (Ack 8:04 LNations ER Tech1) (8:48 JBoardley R.N.) Sed Rate Urgent (08:02 12/31/2016 Mack Bustillo) (Ack 8:04 LNations ER Tech1) (8:48 JBoardley R.N.) US Venous Right Urgent (09:55 12/31/2016 Mikhail Bustillo) (Ack 9:56 LNations ER Tech1) (10:42 LWhalen R.N.) US Art Low Ext Doppler Right Urgent (09:55 12/31/2016 Mikhail Bustillo) (Ack 9:56 LNations ER Tech1) (10:42 LWhalen R.N.) MEDICATION ORDERS: Phenergan IV 25 mg (HIGH ALERT MEDICATION, NOW) (10:27 12/31/2016 Mihkail Bustillo) (10:42 LWhalen R.N.) IV FLUIDS: Toradol IV 30 mg (NOW) (08:01 12/31/2016 Mack Bustillo) (Ack 8:49 Candace R.N.) (10:11 LWhalreyna R.N.) IV Saline Lock (08:02 12/31/2016 Mack Bustillo) (8:49 Candace R.N.) Dilaudid IV 2 mg (HIGH ALERT MEDICATION, NOW) (10:27 12/31/2016 Mikhail Bustillo) (10:42 LWhalen R.N.) ORDER SHEET NOTES: This document has not been locked and should not be saved in the medical record.
--- NOTE | 2017-01-06 04:36 | ED MED RECONCILIATION SUMMARY ---
Patient: JANET MOSER Medication Reconciliation Report [facility] VisitID: [id number] [address] [place] [address] 46y, F Registration Date/Time: 12/31/2016 Weight: 144.2 kg Height/Length: 67 in. BMI: 49.8 ALLERGIES: Codeine, Sulfa Antibiotics The patient's Home Medications are listed below: CONTINUE TAKING THE FOLLOWING MEDICATIONS: Albuterol Sulfate Inhalation AmLODIPine Besylate Oral Aspirin Oral Hydrochlorothiazide Oral Lisinopril Oral Methoprogesterone, for bleeding uterus Paxil Oral 10 mg, daily The source(s) of the original Home Medication information: Not obtained. The following Medications were given to the patient in the Emergency Department: Toradol [IVP] IVP 30 mg, administered: 12/31/2016 8:30:00 AM PHENERGAN [IVPB] IVPB bolus 0, then 25 mg 200 mL/hr, administered: 12/31/2016 10:42:00 AM Dilaudid [IVP] IVP 2 mg, administered: 12/31/2016 10:42:00 AM The following Medications were prescribed to the patient: None.
--- NOTE | 2017-01-06 04:36 | ED MED RECONCILIATION SUMMARY ---
Patient: JANET MOSER Medication Reconciliation Report [facility] VisitID: [id number] [address] [place] [address] 46y, F Registration Date/Time: 12/31/2016 Weight: 144.2 kg Height/Length: 67 in. BMI: 49.8 ALLERGIES: Codeine, Sulfa Antibiotics The patient's Home Medications are listed below: CONTINUE TAKING THE FOLLOWING MEDICATIONS: Albuterol Sulfate Inhalation AmLODIPine Besylate Oral Aspirin Oral Hydrochlorothiazide Oral Lisinopril Oral Methoprogesterone, for bleeding uterus Paxil Oral 10 mg, daily The source(s) of the original Home Medication information: Not obtained. The following Medications were given to the patient in the Emergency Department: Toradol [IVP] IVP 30 mg, administered: 12/31/2016 8:30:00 AM PHENERGAN [IVPB] IVPB bolus 0, then 25 mg 200 mL/hr, administered: 12/31/2016 10:42:00 AM Dilaudid [IVP] IVP 2 mg, administered: 12/31/2016 10:42:00 AM The following Medications were prescribed to the patient: None.
--- NOTE | 2017-01-06 04:36 | ED MAR SUMMARY ---
..... Medication Administration Record [facility] [address] [place] [address] Patient: JANET MOSER Visit ID: [id number] 46y, F Weight: 144.2 kg Height/Length: 67 in BMI: 49.8 ALLERGIES: Codeine, Sulfa Antibiotics Given 08:30 12/31/2016 Kaylee Houston R.N. Medication Administered: TORADOL [IVP], Dose: 30 mg IVP over 2 minute(s), Site: #1. Medication Ordered: Toradol IV 30 mg (NOW). Start 10:42 12/31/2016 Kaylee Houston R.N. Medication Administered: PHENERGAN [IVPB] (PROMETHAZINE HCL), Dose: 25 mg IVPB over 1 hour(s), Rate: 200 mL/hr, Dispensed: 50 mL bag, Site: #1 left forearm. Medication Ordered: Phenergan IV 25 mg (HIGH ALERT MEDICATION, NOW). Given 10:42 12/31/2016 Kaylee Houston R.NKarina Medication Administered: DILAUDID [IVP] (HYDROMORPHONE HCL PF), Dose: 2 mg IVP over 2 minute(s), Site: #1 left forearm. Medication Ordered: Dilaudid IV 2 mg (HIGH ALERT MEDICATION, NOW).
--- NOTE | 2017-01-06 04:36 | ED MAR SUMMARY ---
..... Medication Administration Record [facility] [address] [place] [address] Patient: JANET MOSER Visit ID: [id number] 46y, F Weight: 144.2 kg Height/Length: 67 in BMI: 49.8 ALLERGIES: Codeine, Sulfa Antibiotics Given 08:30 12/31/2016 Kaylee Houston R.N. Medication Administered: TORADOL [IVP], Dose: 30 mg IVP over 2 minute(s), Site: #1. Medication Ordered: Toradol IV 30 mg (NOW). Start 10:42 12/31/2016 Kaylee Houston R.N. Medication Administered: PHENERGAN [IVPB] (PROMETHAZINE HCL), Dose: 25 mg IVPB over 1 hour(s), Rate: 200 mL/hr, Dispensed: 50 mL bag, Site: #1 left forearm. Medication Ordered: Phenergan IV 25 mg (HIGH ALERT MEDICATION, NOW). Given 10:42 12/31/2016 Kaylee Houston R.NKarina Medication Administered: DILAUDID [IVP] (HYDROMORPHONE HCL PF), Dose: 2 mg IVP over 2 minute(s), Site: #1 left forearm. Medication Ordered: Dilaudid IV 2 mg (HIGH ALERT MEDICATION, NOW).
--- NOTE | 2017-01-06 04:36 | ED DISCHARGE INSTRUCTIONS ---
Patient: JANET MOSER General Instructions [facility] VisitID: [id number] [place] [address] 46y, F Registration Date/Time: 12/31/2016 Acute pain in the right lower extremity .12 lead EKG performed. INSTRUCTIONS Warnings: GENERAL WARNINGS: Return or contact your physician immediately if your condition worsens or changes unexpectedly, if not improving as expected, or if other problems arise. Specifically return if pain, vomiting, bleeding, breathing difficulty or fever. Your Current Medications: CONTINUE TAKING THE FOLLOWING MEDICATIONS: Albuterol Sulfate Inhalation : prn. AmLODIPine Besylate Oral. Aspirin Oral. Hydrochlorothiazide Oral. Lisinopril Oral. Methoprogesterone* : for bleeding uterus. Paxil Oral : 10 mg daily. Follow-up: Return to the emergency department as needed. Follow up with your doctor in three days. Reason for referral: recheck today's concerns. Summary of care provided to patient via paper. Screening today revealed the patient's blood pressure to be in the normal range. The patient should follow up with a primary care provider for blood pressure management. Understanding of the discharge instructions verbalized by patient. ADDITIONAL INFORMATION Pain, Uncertain Cause [Acute] Pain is the bodys way of calling attention to a problem. Pain can be caused by many conditions - some minor, some serious. In your case, we were not able to find the exact cause for your pain. However, at this time there is no sign of any serious or life-threatening illness causing your pain. Sometimes more tests will be needed to determine the cause. Other times, just allowing more time to pass will either make it clear what the problem is, or the pain will go away by itself. Home Care: You may use acetaminophen (Tylenol) or ibuprofen (Motrin, Advil) to control pain, unless another medicine was prescribed. [NOTE: If you have chronic liver or kidney disease or ever had a stomach ulcer or GI bleeding, talk with your doctor before using these medicines.] Follow Up with your doctor or as advised by our staff. Get Prompt Medical Attention if any of the following occur: Changes in the pattern of your pain Appearance of new symptoms Fever of 100.4F (38C) or higher, or as directed by your healthcare provider You have been given the following additional information: Pain, Uncertain Cause (Acute) (Electronically signed by Ranjith Hare Dr. 01/06/2017 4:35)
== END 2016-12-31 11:10 | disposition home or self-care (01) ==
LOC: ED SRH 07:33
DX: M79.661 Pain in right lower leg (principal); R20.0 Anesthesia of skin; I10 Essential (primary) hypertension; I51.9 Heart disease, unspecified; Z79.82 Long term (current) use of aspirin; Z79.899 Other long term (current) drug therapy; Z88.5 Allergy status to narcotic agent; Z88.2 Allergy status to sulfonamides